=== PATIENT | male | born 1995 | race Caucasian/White ===

== ENCOUNTER 2016-11-26 08:21 | Emergency (ER) | payer SELFPAY ==
--- NOTE | ~2016-11-26 | ER ---
PATIENT'S NAME: RACH SCHMIDT [facility] AGE: 21 Y [address] ROOM: [place] [id number] LOCATION: [facility] ADMIT DATE: 11/26/2016 ER/Outpatient Report DISCHARGE DATE: 11/26/2016 FAMILY PHYSICIAN: PHYSICIAN, NO ATTENDING PHYSICIAN: Tristen Rowley CHIEF COMPLAINT: Fever and abdominal discomfort. HISTORY OF PRESENT ILLNESS: The patient works at a [employer] in [place] on [address]. He states that they found black mold in their ice machine recently. He thinks he may have ingested some. He thinks that he has had fevers of 100 degrees since then and has had some nausea and states that no food tastes good to him. He denies any other symptoms including palpitations, chest pain, constipation, diarrhea, shortness of breath, difficulty breathing, or other concerning signs or symptoms. He just wants to feel better. He has tried some DayQuil for this issue. PAST MEDICAL HISTORY: Documented on the record and reviewed by me. SOCIAL HISTORY: Documented on the record and reviewed by me. MEDICATIONS: Documented on the record and reviewed by me. ALLERGIES: DOCUMENTED ON THE RECORD AND REVIEWED BY ME. REVIEW OF SYSTEMS: All systems reviewed and negative except as noted in the HPI. PHYSICAL EXAMINATION: VITAL SIGNS: Blood pressure 139/80, pulse 121, respiratory rate 16, temperature 100.7, and SpO2 is 96% on room air. Pain 0/10. GENERAL: Age-appropriate male, upright on exam table with very poor hygiene, otherwise in no acute distress. NEUROLOGIC: Awake and alert. GCS 15. No focal deficits. No asymmetry. No gait abnormalities. HEENT: Normocephalic and atraumatic. Eyes are PERRLA. Oropharynx is clear. NECK: Supple. Trachea is midline. CHEST: Heart is regular. Borderline tachycardia roughly 95 beats per minute. No murmurs. Lungs are clear to auscultation bilaterally. No rhonchi, PATIENT'S NAME: RACH SCHMIDT [facility] AGE: 21 Y [address] ROOM: [place] [address] LOCATION: ED ADMIT DATE: 11/26/2016 ER/Outpatient Report DISCHARGE DATE: 11/26/2016 FAMILY PHYSICIAN: PHYSICIAN, NO ATTENDING PHYSICIAN: Tristen Rowley wheezes, or rales. ABDOMEN: Soft, nontender, and nondistended. EXTREMITIES: Warm and well perfused. SKIN: Notable for diffuse acne, otherwise unremarkable. LABORATORY DATA AND X-RAYS: None. IMPRESSION: Gastroenteritis versus viral syndrome. EMERGENCY DEPARTMENT COURSE: The patient was seen and evaluated. I think it is more likely that he has a viral syndrome than significant symptoms from exposure to mold. He was given Zofran and Tylenol to treat his fever. Recommend scheduled Tylenol. Prescription for Zofran. He was given contact information for local clinics to establish care and follow up as needed. Return with specific concerns or symptoms or any other concerns. MD MENDOZA RIBERA/jeff /[id number] d: 11/26/16 1816 t: 12/06/16 0721, OUTPATIENT REPORT
== END 2016-11-26 08:50 | disposition disaster alternative care site (69) ==
LOC: GMED 08:21
DX: R50.9 Fever, unspecified (principal); R11.0 Nausea

== ENCOUNTER 2016-11-28 17:38 | Emergency (ER) | payer SELFPAY ==
--- NOTE | ~2016-11-28 | ER ---
PATIENT'S NAME: RACH SCHMIDT [facility] AGE: 21 Y [address] ROOM: [place] [address] LOCATION: [facility] ADMIT DATE: 11/28/2016 ER/Outpatient Report DISCHARGE DATE: 11/28/2016 FAMILY PHYSICIAN: PHYSICIAN, NO ATTENDING PHYSICIAN: Mayra Marie Admission date and time documented in the medical record. I saw the patient at 1815 hours. CHIEF COMPLAINT: Sore throat, enlarged cervical lymph glands, loss of appetite. HISTORY OF PRESENT ILLNESS: This patient is a 21-year-old male, who has been ill for about 3-4 days. Comes in saying he has had no appetite. He has had some nausea, but no vomiting or diarrhea. No abdominal pain. No chest pain, a little bit exertional dyspnea at times. He has had a fever with chills intermittently. He complains of sore throat, enlarged cervical lymph glands anteriorly. No headache. No fall or trauma. No lightheadedness, dizziness, syncope, or near syncope. No joint or muscle swelling, redness, or pain. No skin eruptions or rash. No history of neuro changes, psych issues, or endocrine problems. HOME MEDICATIONS: See attached medication list. ALLERGIES: NONE. SOCIAL HISTORY: Smokes marijuana, but not tobacco. Uses alcohol occasionally. SIGNIFICANT PAST MEDICAL HISTORY: Marijuana use, otherwise negative. OPERATIONS: None. REVIEW OF SYSTEMS: All systems reviewed by me are negative with the exception of those discussed in the history of the present illness. PHYSICAL EXAMINATION: VITAL SIGNS: Temperature 98.1 orally, pulse 110, respirations 18, blood pressure 155/88, O2 sat on room air is 98%. HEAD: Normocephalic. PATIENT'S NAME: RACH SCHMIDT [facility] AGE: 21 Y [address] ROOM: [place] [address] LOCATION: [facility] ADMIT DATE: 11/28/2016 ER/Outpatient Report DISCHARGE DATE: 11/28/2016 FAMILY PHYSICIAN: PHYSICIAN, NO ATTENDING PHYSICIAN: Mayra Marie EYES: Clear. EARS: Clear TMs bilaterally. NOSE: Clear. THROAT: Clear. Mucous membranes moist. NECK: Anterior adenopathy tender. No nuchal rigidity. Range of motion full. SPINE: Negative. LUNGS: Clear. Good air flow. No rales, rhonchi, or wheezes. HEART: Regular. Pulses are palpable. ABDOMEN: Soft, nondistended, nontender. Good bowel tones. No palpable spleen. No organomegaly or abnormal mass palpable. No CVA tenderness. EXTREMITIES: Intact. NEUROVASCULAR: Intact. SKIN: Clear. No skin eruptions or rash. IMAGING DATA: Chest x-ray showed no acute infiltrate or changes. We will review x-ray with the radiologist. LABORATORY: Blood cultures x2 drawn, results pending. CMS was normal except for a low anion gap of 9.2. CRP was elevated at 7.21. Rapid strep screen was negative. Monospot was negative. White count was 8800, 58 segs, 6 bands, 26 lymphs, 5 monos, 7 reactive lymphocytes. Sed rate is elevated at 41. PTT was 29. Pro- time is 10.9 with an INR of 1.04. Procalcitonin was 0.08. Lactate was 1.1. IMPRESSION: Pharyngitis with anterior cervical lymphadenitis, tender to palpation. The patient does have a bandemia, but also has 7% reactive lymphocytes and an elevated sed rate as well as the CRP. Rapid strep screen was negative. Monospot was negative. Awaiting plated throat culture results. PLAN: The patient was given 1 L normal saline IV in the emergency room, Decadron 10 mg IV in the emergency room. Dismissed home. Observation. Activity as tolerated. Fluids, diet as tolerated. Z-Mario take as directed. Medrol Dosepak take as directed. Tylenol or ibuprofen 2 every 4-6 hours as needed for fever. Follow up with personal physician as needed. Discussion ensued with the patient concerning my findings and recommendations, he understands. PETER CROW MD SDS/modl PATIENT'S NAME: RACH SCHMIDT [facility] AGE: 21 Y [address] ROOM: [place] [address] LOCATION: ED ADMIT DATE: 11/28/2016 ER/Outpatient Report DISCHARGE DATE: 11/28/2016 FAMILY PHYSICIAN: PHYSICIAN, NO ATTENDING PHYSICIAN: Mayra Marie /[id number] d: 11/29/16 0243 t: 12/04/16 1814, OUTPATIENT REPORT
[2016-11-28 18:50] LABS: HEMATOCRIT 44.6 % (37.0-53.0); HEMOGLOBIN 15.8 g/dL (12.0-17.0); MCH 32.8 pg (27.0-34.0); MCHC 35.4 gm/dL (32.0-36.5); MCV 92.5 fl (83.0-98.0); PLATELET COUNT 197 K/uL (150-450); RBC 4.82 M/uL (4.00-6.00); RDW-CV 11.9 % (11.9-14.6); WBC 8.8 K/uL (4.0-11.0)
[2016-11-28 18:58] LABS: INR - (THERAPEUTIC) 1.04 (0.92-1.07); PROTIME 10.9 SECONDS (9.8-11.4); PTT 29 SECONDS (25-32)
[2016-11-28 19:11] LABS: ALBUMIN 3.6 gm/dL (3.5-5.0); ALK PHOS 73 IU/L (33-138); ALT 32 IU/L (12-78); ANION GAP 9.2 (10.0-19.0); AST 22 IU/L (10-40); BLOOD UREA NITROGEN 9 mg/dL (6-24); CALCIUM 8.8 mg/dL (8.5-10.5); CHLORIDE 105 mMol/L (96-110); CO2 30 mMol/L (22-32); POTASSIUM 4.2 mMol/L (3.7-5.1); SODIUM 140 mMol/L (135-145); TOTAL BILIRUBIN 0.5 mg/dL (0.0-1.5)
[2016-11-28 19:33] LABS: ABSOLUTE NEUTROPHIL CT (ANC) 5.6 K/uL (1.4-9.0); BANDED NEUTROPHIL # 0.5 K/uL (0.0-0.1); BANDED NEUTROPHILS % 6 %; LYMPHOCYTE # 2.9 K/uL (0.8-4.0); LYMPHOCYTE % 26 %; MONOCYTE # 0.4 K/uL (0.0-1.0); SEGMENTED NEUTROPHIL # 5.1 K/uL (1.4-9.0); SEGMENTED NEUTROPHIL % 58 %
== END 2016-11-28 20:05 | disposition disaster alternative care site (69) ==
LOC: GMED 17:38
PROVIDERS: Emergency Medicine
DX: J02.9 Acute pharyngitis, unspecified (principal); I88.8 Other nonspecific lymphadenitis; D72.825 Bandemia
CPT/HCPCS: J1100; J7030